=== PATIENT | female | born 1975 | race Hispanic/Latino ===

== ENCOUNTER 2019-07-18 09:18 | Outpatient (CLI) | payer BC ==
[2019-07-18 09:59] LABS: Hematocrit 37.4 % (30.3-42.9); Hemoglobin 12.6 gm/dl (10.1-14.3); Mean Corpuscular HGB Conc 34 % (30-34); Mean Corpuscular Volume 95 fl (79-97); Platelet Count 165 K/mm3 (140-440); Red Blood Count 3.94 M/mm3 (3.65-5.03); Red Cell Distribution Width 12.5 % (13.2-15.2)
[2019-07-18 10:25] LABS: Alanine Aminotransferase 44 units/L (7-56); Albumin 4.1 g/dL (3.9-5); BUN/Creatinine Ratio 17; Blood Urea Nitrogen 10 mg/dL (7-17); Hemolysis Index 2
[2019-07-18 10:54] LABS: Erythrocyte Sedimentation Rate 9 mm/Hr (0-20)
[2019-07-20 12:20] LABS: ANA Screen, IFA Positive (Negative)
[2019-07-21 16:10] LABS: Vitamin D, 25-OH, D2 <4 ng/mL
== END 2019-07-18 09:19 | disposition home or self-care (01) ==
LOC: LAB 09:18
PROVIDERS: ATTEND Specialist
DX: R55 Syncope and collapse (principal); G93.41 Metabolic encephalopathy
CPT/HCPCS: 36415; 80053; 82306; 82607; 83921; 85027; 85652; 86038; 86225; 86592; 86618